=== PATIENT | female | born 1965 | race Caucasian/White ===

== ENCOUNTER 2019-05-05 16:09 | Emergency (ER) | payer BC ==
--- NOTE | 2019-05-05 18:31 | ER ---
REASON FOR EMERGENCY ROOM VISIT: Right foot injury. 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 She was busy trying to wrestle a mik and was holding him upright when they fell backwards and she experienced a twisting of her right ankle. She had severe pain in her right forefoot and she was subsequently brought to the emergency department by her . She was able to bear weight, but quite gingerly. She denies any numbness in her foot. She has no significant history of trauma like this in the past. PAST MEDICAL HISTORY: Reviewed, unremarkable. MEDICATIONS: None. ALLERGIES: NONE TO MEDICATIONS. REVIEW OF SYSTEMS: Pertinent positives and negatives as listed in the HPI. PHYSICAL EXAMINATION: She has perhaps a slight amount of bluish discoloration over her right forefoot proximally on the dorsum. There is no swelling. There is some tenderness to direct palpation. Good capillary refill is noted. There is no swelling. No bony crepitus is noted. Range of motion is normal to passive motion. IMAGING: X-ray of her right foot, 3 views, revealed no evidence of fracture or dislocation. IMPRESSION: Soft tissue injury, right foot, possibly mild sprain. PLAN: I advised her to go on nonweightbearing for at least the next 2-3 days until she is pain free. If she is still having the same degree of discomfort after a couple of days of this, so she should probably be seen again and have this re-evaluated. In the meantime, I have recommended ice, elevation, ibuprofen or Tylenol for discomfort. They understand and agree. All questions were answered. STEPHIE /[id number]
--- NOTE | 2019-05-06 10:31 | CR ---
Date of Service: 05/05/19 Clinical Data: trauma....pain prox forefoot LEFT FOOT: There is moderate bunion deformity of the MP joint of the first toe. No acute fracture or dislocation. No focal lytic or blastic bone lesions. [id number] MTDD
== END 2019-05-05 17:20 | disposition home or self-care (01) ==
LOC: LB.ED 16:09
DX: S99.921A Unspecified injury of right foot, initial encounter (principal); X50.1XXA Overexertion from prolonged static or awkward postures, initial encounter; Y93.89 Activity, other specified
CPT/HCPCS: 73630-LT; 99283-25